=== PATIENT | male | born 1965 | race Caucasian/White ===

== ENCOUNTER → 2020-12-30 10:18 | Outpatient (CLI) | payer SELFPAY ==
[2020-12-30 11:26] LABS: Alanine Aminotransferase 35 IU/L (<50); Albumin Globulin Ratio 1.3 (1.0-2.8); Alkaline Phosphatase 63 U/L (38-126); Aspartate Aminotransferase 34 IU/L (17-59); BUN Creatinine Ratio 21.5 (6-22); Bilirubin Total 0.3 mg/dL (0.2-1.3); Blood Urea Nitrogen 17 mg/dL (9-20); Calcium 9.5 mg/dL (8.4-10.2); Carbon Dioxide 29 mmol/L (22-32); Chloride 105 mmol/L (98-107); Estimated Glomerular Filt Rate > 60.0 mL/min (>60); Glucose 103 mg/dL (70-100); HEMOLYSIS < 15 (0-50); Potassium 4.8 mmol/L (3.4-5.1); Sodium 140 mmol/L (137-145)
[2020-12-30 11:54] LABS: Prostate Specific Antigen Scrn 2.19 ng/mL (0.1-4.0)
== END ==
PROVIDERS: PCP Student in an Organized Health Care Education/Training Program; Referring Provider Student in an Organized Health Care Education/Training Program; Visit Provider Student in an Organized Health Care Education/Training Program
DX: I10 Essential (primary) hypertension (principal); Z12.5 Encounter for screening for malignant neoplasm of prostate; Z79.899 Other long term (current) drug therapy
CPT/HCPCS: 36415; 80053; G0103

== ENCOUNTER 2021-03-17 15:53 | Emergency (ER) | payer OTHER, SELFPAY ==
[2021-03-17 16:02] VITALS: BP 137/63; PULSE 89; RESP 12; TEMP 36.8; O2SAT 98; BMI 29.2
[2021-03-17 17:47] VITALS: BP 136/88; PULSE 84; RESP 18; O2SAT 98
--- NOTE | 2021-03-17 18:23 | ED_ITS ---
HPI - Wound/Laceration General Chief Complaint: Wound/Laceration Stated Complaint: Laceration on Left Calf Time Seen by Provider: 03/17/21 18:23 Source: patient Mode of arrival: Ambulatory History of Present Illness HPI narrative: 56-year-old gentleman with hypertension was at work today misstepped and cut his left leg on bladed tool that was on the ground. Has a 5 cm superficial laceration to the lateral aspect of the left calf with no other complaints. Bleeding is controlled. L&I forms are filled out. He denies any recent fever cough chills. There is no erythema or signs of infection around the wound. He is up-to-date on tetanus. Related Data Previous Rx's Medication Instructions Recorded lisinopril 10 1 tab PO DAILY #90 tab 12/30/20 mg-hydrochlorothiazide 12.5 mg tablet triamcinolone acetonide 0.1 % 1 applic TOPICAL DAILY #30 g 12/30/20 topical ointment Allergies Allergy/AdvReac Type Severity Reaction Status Date / Time No Known Drug Allergies Allergy Unverified 03/17/21 16:03 Review of Systems Review of Systems Narrative: Remainder of complete review of systems is otherwise unremarkable except for that included in the HPI. Patient History Medical History (Updated 03/17/21 @ 18:59 by Aviva Keith MD) Essential hypertension Moderate mixed hyperlipidemia not requiring statin therapy Psoriasis Social History Smoking Status: Never smoker Smoking Status: Never smoker alcohol intake frequency: a few times a week Substance Use Type: does not use Exam Narrative Exam Narrative: General: Alert appropriate in no acute distress Respiratory: Able to speak in full sentences, no obvious respiratory distress Skin: No obvious rashes, warm and dry Neurologic: Grossly intact no obvious asymmetries or abnormalities Psych: appropriate insight and affect, cooperative Extremity: Superficial laceration to the left calf, 5 cm, bleeding is co ntrolled wound is otherwise clean Initial Vital Signs Initial Vital Signs: Vital Signs Temperature 98.3 F 03/17/21 16:02 Pulse Rate 89 03/17/21 16:02 Respiratory Rate 12 03/17/21 16:02 Blood Pressure 137/63 03/17/21 16:02 Pulse Oximetry 98 03/17/21 16:02 Procedures Laceration Repair Left calf: Time of procedure: 18:55 Site: lower extremity Side (If applicable): left Size (cm): 5 Depth: simple, single layer Pre-repair: irrigated extensively (Cleaned thoroughly) Skin layer closed with: dermabond (And Steri-Strips) Course Course Course Narrative: 56-year-old gentleman with shallow 5 cm laceration from work site injury. Easily repaired. Vital Signs Vital signs: Vital Signs - 8 hr 03/17/21 16:02 03/17/21 17:47 Temperature 98.3 F Pulse Rate 89 84 Respiratory Rate 12 18 Blood Pressure 137/63 136/88 Pulse Oximetry 98 98 Discharge Plan Departure Patient Disposition: Home Clinical Impression: Laceration Instructions: DI for Minor Laceration Activity Restrictions/Additional Instructions: Thank you for coming in today Fortunately the laceration was quite shallow and we were able to use glue and Steri-Strips to repair the wound. I expect that it will heal nicely. If you do notice any increasing redness, pain or drainage you do need to be re-evaluated I hope you heal quickly Prescriptions: No Action lisinopril-hydrochlorothiazide 10-12.5 mg tablet 1 tab PO DAILY Qty: 90 RF: 3 triamcinolone acetonide 0.1 % ointment 1 applic topical DAILY Qty: 30 RF: 11 Referrals: Leno Crocker MD [Primary Care Provider] -
== END 2021-03-17 21:32 | disposition home or self-care (01) ==
PROVIDERS: Emergency Provider Emergency Medicine; PCP Student in an Organized Health Care Education/Training Program
DX: S81.812A Laceration without foreign body, left lower leg, initial encounter (principal); W26.9XXA Contact with unspecified sharp object(s), initial encounter; Y99.0 Civilian activity done for income or pay
CPT/HCPCS: 99283

== ENCOUNTER 2021-03-26 21:21 | Emergency (ER) | payer SELFPAY ==
[2021-03-26 21:20] VITALS: BP 164/89; PULSE 114; RESP 18; TEMP 36.8; O2SAT 97; BMI 29.3
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
--- NOTE | 2021-03-26 21:57 | PC.NURSE ---
Pt declines IV/head CT.
[2021-03-26 21:58] VITALS: BP 158/79; PULSE 99; RESP 16; O2SAT 99
== END 2021-03-26 22:01 | disposition home or self-care (01) ==
LOC: ED 21:50
PROVIDERS: Emergency Provider Emergency Medicine; PCP Student in an Organized Health Care Education/Training Program
DX: S00.81XA Abrasion of other part of head, initial encounter (principal); S00.11XA Contusion of right eyelid and periocular area, initial encounter; V19.3XXA Pedal cyclist (driver) (passenger) injured in unspecified nontraffic accident, initial encounter; Y93.55 Activity, bike riding
CPT/HCPCS: 99281

== ENCOUNTER → 2021-07-18 14:34 | Outpatient (CLI) | payer SELFPAY ==
[2021-07-18 15:42] LABS: Add Manual Diff / Slide Review NO; Basophils Absolute Auto 0 /uL (0-100); Basophils Percent Auto 0.4 % (0-2); Eosinophils Absolute Auto 100 /uL (0-450); Eosinophils Percent Auto 1.2 % (2-4); Hematocrit 43.2 % (41-53); Hemoglobin 14.6 g/dL (13.5-17.5); Lymphocytes Absolute Auto 1800 /uL (1100-4500); Mean Corpuscular HGB Conc 33.9 % (30-36); Mean Corpuscular Hemoglobin 29.5 PG (26-34); Mean Corpuscular Volume 87.1 fL (80-100); Monocytes Absolute Auto 600 /uL (0-900); Monocytes Percent Auto 6.4 % (3-14); Neutrophils Absolute Auto 6900 /uL (1500-7000); Platelet Count 299 X10^3/uL (150-400); Red Blood Cell Count 4.96 X10^6/uL (4.5-5.9); Red Cell Distribution Width 14.3 % (11.6-14.8); White Blood Cell Count 9.4 X10^3/uL (4.5-11.0)
[2021-07-18 15:58] LABS: Hemoglobin A1C% w Est Avg Glu 5.5 % (4.0-6.0)
[2021-07-18 16:58] LABS: BUN Creatinine Ratio 22.5 (6-22); Blood Urea Nitrogen 20 mg/dL (9-20); Calcium 9.8 mg/dL (8.4-10.2); Carbon Dioxide 29 mmol/L (22-32); Chloride 102 mmol/L (98-107); Estimated Glomerular Filt Rate > 60.0 mL/min (>60); Glucose 96 mg/dL (70-100); HEMOLYSIS < 15 (0-50); Potassium 4.5 mmol/L (3.4-5.1); Sodium 139 mmol/L (137-145)
[2021-07-18 17:29] LABS: TSH w/ Reflex to FT4 1.09 uIU/mL (0.47-4.68)
[2021-07-18 17:31] LABS: Testosterone 360 ng/dL (71.8-623)
[2021-07-18 17:48] LABS: Vitamin B12 345 pg/mL (239-931)
== END ==
PROVIDERS: PCP Student in an Organized Health Care Education/Training Program; Referring Provider Student in an Organized Health Care Education/Training Program; Visit Provider Student in an Organized Health Care Education/Training Program
DX: I10 Essential (primary) hypertension (principal); R53.83 Other fatigue
CPT/HCPCS: 36415; 80048; 82607; 83036; 84403; 84443; 85025

== ENCOUNTER → 2022-12-11 07:10 | Outpatient (CLI) | payer OTHER, SELFPAY ==
--- NOTE | 2022-12-11 | DI.CT.S_ITS ---
PROCEDURE: CT SINUS SCREEN WO CON INDICATIONS: Chronic pansinusitis TECHNIQUE: Noncontrast 3.0 mm axial images acquired from the frontal sinuses to the mid-sella, with coronal and sagittal reformats. For radiation dose reduction, the following was used: automated exposure control, adjustment of mA and/or kV according to patient size. COMPARISON: None. FINDINGS: Image quality: Excellent. Maxillary Sinuses: No bony remodeling or destruction. Sinuses are clear. Ethmoid Air Cells: No bony remodeling or destruction. Sinuses are clear. Sphenoid Sinuses: No bony remodeling or destruction. Sinuses are clear. Frontal Sinuses: Right frontal retention cyst measures 1.1 x 1.8 cm. No remodeling Ostiomeatal Complexes: Mild maxillary mucosal thickening results in stenosis of both ostiomeatal units without obstruction Miscellaneous: Visualized intra-orbital contents are normal. No fang bullosa or paradoxical turbinate curvature. No nasal septal deviation. IMPRESSION: 1. Maxillary mucosal thickening results in mild stenosis of both ostiomeatal units without obstruction. 2. Right frontal sinus retention cyst 3. No evidence of osseous sclerosis or remodeling. Approved by: John Lund M.D. on 12/11/2022 at 10:14
== END ==
PROVIDERS: PCP Student in an Organized Health Care Education/Training Program; Referring Provider Otolaryngology; Visit Provider Otolaryngology
DX: J32.4 Chronic pansinusitis (principal); J34.1 Cyst and mucocele of nose and nasal sinus
CPT/HCPCS: 70486

== ENCOUNTER → 2023-01-02 17:14 | Outpatient (CLI) | payer OTHER, SELFPAY ==
[2023-01-02 18:24] LABS: Blood Urea Nitrogen 20 mg/dL (9-20); Carbon Dioxide 31 mmol/L (22-32); Chloride 102 mmol/L (98-107); Cholesterol 194 mg/dL (140-199); Estimated Glomerular Filt Rate > 60 mL/min (>60); Glucose 82 mg/dL (70-100); HDL Cholesterol 51 mg/dL (40-60); HEMOLYSIS < 15 (0-50); LDL Cholesterol Calculated 118 mg/dL (<100); Potassium 4.1 mmol/L (3.4-5.1); Sodium 138 mmol/L (137-145); Triglycerides 124 mg/dL (35-150)
[2023-01-02 18:53] LABS: Prostate Specific Antigen Scrn 2.24 ng/mL (0.1-4.0)
[2023-01-04 16:50] LABS: Hep C Virus Ab w/Reflex Quant NEGATIVE s/c (NEGATIVE)
== END ==
PROVIDERS: PCP Student in an Organized Health Care Education/Training Program; Referring Provider Student in an Organized Health Care Education/Training Program; Visit Provider Student in an Organized Health Care Education/Training Program
DX: Z11.59 Encounter for screening for other viral diseases (principal); E78.2 Mixed hyperlipidemia; Z12.5 Encounter for screening for malignant neoplasm of prostate; I10 Essential (primary) hypertension
CPT/HCPCS: 36415; 80048; 80061; 86803; G0103

== ENCOUNTER → 2024-01-03 17:39 | Outpatient (ROUT) | payer OTHER, SELFPAY ==
[2024-01-03 17:56] LABS: Add Manual Diff / Slide Review NO; Basophils Absolute Auto 100 /uL (0-100); Basophils Percent Auto 0.6 % (0-2); Eosinophils Absolute Auto 200 /uL (0-450); Eosinophils Percent Auto 1.7 % (2-4); Hematocrit 44.6 % (41-53); Lymphocytes Absolute Auto 2500 /uL (1100-4500); Mean Corpuscular HGB Conc 33.7 % (30-36); Mean Corpuscular Hemoglobin 29.7 PG (26-34); Mean Corpuscular Volume 88.3 fL (80-100); Monocytes Absolute Auto 800 /uL (0-900); Monocytes Percent Auto 7.8 % (3-14); Neutrophils Absolute Auto 6100 /uL (1500-7000); Neutrophils Percent Auto 63.9 % (50-75); Platelet Count 275 X10^3/uL (150-400); Red Blood Cell Count 5.05 X10^6/uL (4.5-5.9); White Blood Cell Count 9.6 X10^3/uL (4.5-11.0)
[2024-01-03 18:11] LABS: Hemoglobin A1C% w Est Avg Glu 6.1 % (4.0-6.0)
[2024-01-03 18:42] LABS: TSH w/ Reflex to FT4 0.47 uIU/mL (0.47-4.68)
[2024-01-03 19:04] LABS: HIV 1 & 2 Ab/Ag 4th Gen Combo NEGATIVE (NEGATIVE)
[2024-01-03 19:21] LABS: Alanine Aminotransferase 40 IU/L (<50); Albumin 4.6 g/dL (3.5-5.0); Albumin Globulin Ratio 1.5 (1.0-2.8); Alkaline Phosphatase 59 U/L (38-126); Aspartate Aminotransferase 37 IU/L (17-59); BUN Creatinine Ratio 25.3 (6-22); Bilirubin Total 0.5 mg/dL (0.2-1.3); Blood Urea Nitrogen 25 mg/dL (9-20); Calcium 9.6 mg/dL (8.4-10.2); Carbon Dioxide 30 mmol/L (22-32); Chloride 105 mmol/L (98-107); Cholesterol 182 mg/dL (140-199); Estimated Glomerular Filt Rate > 60 mL/min (>60); Glucose 109 mg/dL (70-100); HDL Cholesterol 43 mg/dL (40-60); LDL Cholesterol Calculated 116 mg/dL (<100); Potassium 4.3 mmol/L (3.4-5.1); Sodium 140 mmol/L (137-145); Total Protein 7.6 g/dL (6.3-8.2); Triglycerides 114 mg/dL (35-150)
[2024-01-03 19:53] LABS: HEMOLYSIS < 15 (0-50); Prostate Specific Antigen Scrn 2.57 ng/mL (0.1-4.0)
[2024-01-03 19:55] LABS: Testosterone 322 ng/dL (71.8-623)
== END ==
PROVIDERS: PCP Family Medicine; Visit Provider Family Medicine
DX: Z00.00 Encounter for general adult medical examination without abnormal findings (principal); Z11.4 Encounter for screening for human immunodeficiency virus [HIV]; Z12.5 Encounter for screening for malignant neoplasm of prostate; I10 Essential (primary) hypertension; N40.0 Benign prostatic hyperplasia without lower urinary tract symptoms; M79.605 Pain in left leg; R53.82 Chronic fatigue, unspecified
CPT/HCPCS: 36415; 80053; 80061; 83036; 84403; 84443; 85025; 87389; G0103

== ENCOUNTER → 2024-08-04 07:04 | Outpatient (CLI) | payer BC, SELFPAY ==
[2024-08-04 08:31] LABS: Cholesterol 138 mg/dL (140-199); HDL Cholesterol 48 mg/dL (40-60); LDL Cholesterol Calculated 71 mg/dL (<100); Triglycerides 95 mg/dL (35-150)
[2024-08-04 08:49] LABS: Hemoglobin A1C% w Est Avg Glu 5.9 % (4.0-6.0)
== END ==
PROVIDERS: PCP Family Medicine; Referring Provider Family Medicine; Visit Provider Family Medicine
DX: I10 Essential (primary) hypertension (principal); E78.5 Hyperlipidemia, unspecified; R73.01 Impaired fasting glucose; L91.8 Other hypertrophic disorders of the skin; J32.9 Chronic sinusitis, unspecified; N40.1 Benign prostatic hyperplasia with lower urinary tract symptoms; R35.1 Nocturia
CPT/HCPCS: 36415; 80061; 83036

== ENCOUNTER → 2024-12-19 08:31 | Outpatient (CLI) | payer OTHER, SELFPAY ==
[2024-12-19 09:38] LABS: Hemoglobin A1C% w Est Avg Glu 5.6 % (4.0-6.0)
[2024-12-19 09:48] LABS: Alanine Aminotransferase 53 IU/L (<50); Albumin 4.4 g/dL (3.5-5.0); Albumin Globulin Ratio 1.8 (1.0-2.8); Alkaline Phosphatase 53 U/L (38-126); Aspartate Aminotransferase 40 IU/L (17-59); BUN Creatinine Ratio 22.2 (6-22); Bilirubin Total 0.8 mg/dL (0.2-1.3); Blood Urea Nitrogen 20 mg/dL (9-20); Calcium 9.7 mg/dL (8.4-10.2); Carbon Dioxide 26 mmol/L (22-32); Chloride 103 mmol/L (98-107); Estimated Glomerular Filt Rate > 60 mL/min (>60); Globulin 2.4 g/dL (1.7-4.1); Glucose 103 mg/dL (80-110); HEMOLYSIS < 15 (0-50); Potassium 4.7 mmol/L (3.4-5.1); Sodium 138 mmol/L (137-145); Total Protein 6.8 g/dL (6.3-8.2)
[2024-12-19 10:22] LABS: Prostate Specific Antigen Scrn 1.73 ng/mL (0.1-4.0)
== END ==
PROVIDERS: PCP Family Medicine; Referring Provider Family Medicine; Visit Provider Family Medicine
DX: Z00.00 Encounter for general adult medical examination without abnormal findings (principal); E78.5 Hyperlipidemia, unspecified; I10 Essential (primary) hypertension; R73.01 Impaired fasting glucose; Z12.5 Encounter for screening for malignant neoplasm of prostate
CPT/HCPCS: 36415; 80053; 83036; G0103

== ENCOUNTER → 2025-05-30 07:30 | Outpatient (CLI) | payer OTHER, SELFPAY ==
[2025-05-30 09:18] LABS: Hemoglobin A1C% w Est Avg Glu 5.9 % (4.0-6.0)
[2025-05-30 09:26] LABS: Blood Urea Nitrogen 20 mg/dL (9-20); Calcium 9.3 mg/dL (8.4-10.2); Carbon Dioxide 29 mmol/L (22-32); Chloride 102 mmol/L (98-107); Cholesterol 121 mg/dL (140-199); Creatine Kinase 87 U/L (55-170); Estimated Glomerular Filt Rate > 60 mL/min (>60); Glucose 68 mg/dL (70-99); HDL Cholesterol 53 mg/dL (40-60); HEMOLYSIS < 15 (0-50); Potassium 4.4 mmol/L (3.4-5.1); Sodium 139 mmol/L (137-145); Triglycerides 72 mg/dL (35-150)
[2025-05-30 09:57] LABS: Prostate Specific Antigen 2.70 ng/mL (0.10-4.00)
== END ==
PROVIDERS: Urology; PCP Family Medicine; Referring Provider Family Medicine; Visit Provider Family Medicine
DX: N40.1 Benign prostatic hyperplasia with lower urinary tract symptoms (principal); I10 Essential (primary) hypertension; R73.01 Impaired fasting glucose; E78.5 Hyperlipidemia, unspecified; M25.50 Pain in unspecified joint; M79.10 Myalgia, unspecified site
CPT/HCPCS: 36415; 80048; 80061; 82550; 83036; 84153; 85651; 86200; 86430